=== PATIENT | female | born 1935 | race Caucasian/White ===

== ENCOUNTER → 2017-07-11 | Outpatient (CLI) | payer MEDICARE ==
[~2017-07-11] MED LIST: ALEN70TA42 PO; ASPI-1441 PO; ASPI81TA15 PO; CALC-1171 PO; CELE-1 PO; CLON1 PO; DILT-96 PO; ESOM40CA42 PO; EZE10 PO; FEXO180T74 PO; FISH OIL1 CAP PO; HCTZ25 PO; HYDROCLOROTHIAZIDE PO; MULT-820 PO; OSTEO BIFLEX
== END ==
LOC: RESP 00:56
PROVIDERS: ATTEND Internal Medicine
DX: J70.1 Chronic and other pulmonary manifestations due to radiation (principal)
CPT/HCPCS: 94060; 94729

== ENCOUNTER → 2017-11-22 | Outpatient (CLI) | payer MEDICARE | LOC: CT 02:05 | PROVIDERS: ATTEND Internal Medicine | DX: I07.1 Rheumatic tricuspid insufficiency (principal); I34.0 Nonrheumatic mitral (valve) insufficiency; I35.1 Nonrheumatic aortic (valve) insufficiency | CPT/HCPCS: 93306 ==

== ENCOUNTER → 2018-02-24 | Outpatient (CLI) | payer MEDICARE ==
[~2018-02-24] MED LIST changes: +IOPAMIDOL 76% 75 ML INFUS BTL 75 ML ONE; +NS(*) 0.9% 50 ML BAG 50 ML ONE
== END ==
LOC: CT 04:42
PROVIDERS: ATTEND Internal Medicine Cardiovascular Disease
DX: I71.2 Thoracic aortic aneurysm, without rupture (principal)
CPT/HCPCS: J7050; Q9967